=== PATIENT | male | born 1975 | race Caucasian/White ===

== ENCOUNTER 2017-03-30 16:20 | Emergency (ER) | payer MEDICAID ==
[2017-03-30 16:29] VITALS: BP 128/73; PULSE 97; RESP 18; TEMP 97.9; O2SAT 93
[2017-03-30] MEDS ORDERED: HYDROmorphONE/DILAUDID 1 MG/ML INJ IM ONE (17:04)
--- NOTE | 2017-03-30 17:07 | EDPHY ---
H & P Time Seen by Provider: 03/30/17 16:34 HPI/ROS: CHIEF COMPLAINT: Low back pain HISTORY OF PRESENT ILLNESS: 41-year-old male presents with low back pain. He has a history of chronic low back pain and is under the care of a pain medicine specialist. He takes oxycodone and MS Contin daily. He received a steroid lumbar injection 1 month ago. Since then, the pain has gradually worsened. The pain is now unrelieved with his usual pain medications. In addition, his pain medicine doctor has been lowering his narcotic dosing gradually. No new numbness, weakness or radiation of pain. REVIEW OF SYSTEMS: Constitutional: No fever, no chills Eyes: No visual changes ENT: No sore throat Respiratory: No cough, no shortness of breath Cardiac: No chest pain Gastrointestinal: No nausea, no vomiting, no abdominal pain Genitourinary: no dysuria Musculoskeletal: No leg pain or swelling Skin: No rash Neurological: No headache, no numbness, no weakness Psychiatric: No depression Past Medical/Surgical History: Chronic low back pain Smoking Status: Never smoked Physical Exam: General Appearance: Alert, pleasant, does not appear in pain Eyes: Pupils equal and round, no conjunctival pallor ENT, Mouth: Mucous membranes moist Neck: Normal inspection Respiratory: normal respiratory rate Cardiovascular: Regular rate and rhythm Gastrointestinal: Abdomen is soft and nontender Back: Tenderness over the right lower lumbar area, no midline tenderness Neurological: A&O, motor 5/5, sensory intact to light touch, normal gait Skin: Warm and dry Extremities: normal inspection Psychiatric: Mood and affect normal Constitutional: Initial Vital Signs Temperature (C) 36.6 C 03/30/17 16:26 Heart Rate 97 03/30/17 16:26 Respiratory Rate 18 03/30/17 16:26 Blood Pressure 128/73 H 03/30/17 16:26 O2 Sat (%) 93 03/30/17 16:26 O2 Delivery Mode Room Air Allergies/Adverse Reactions: morphine Allergy (Verified 03/30/17 16:24) Home Medications: Medication Instructions Recorded GABAPENTIN 10/30/13 Flexeril 03/30/17 Ms Contin 03/30/17 Oxycontin 03/30/17 methylPREDNISolone [Medrol Dose 1 each PO AD #1 ea 03/30/17 Mj] traMADol 03/30/17 Medical Decision Making ED Course/Re-evaluation: I reviewed CORHIO: last ED visit on 12/2015 at [facility] for LBP. [place] prescriptive hx website: one provider and one pharmacy, last rx 03/11/17. Dilaudid 1 mg IM given. A Medrol Dosepak prescribed. Differential Diagnosis: includes though not limited to epidural abscess, sciatica, cauda equina syndrome , muscular strain, compression fx - Data Points Medications Given: Discontinued Medications Hydromorphone HCl (Dilaudid) 1 mg IM EDNOW ONE Stop: 03/30/17 17:05 Last Admin: 03/30/17 17:18 Dose: 1 mg Departure - Departure Disposition: Home, Routine, Self-Care Clinical Impression: Chronic lower back pain Qualifiers: Back pain laterality: bilateral Sciatica presence: without sciatica Qualified Code(s): M54.5 - Low back pain; G89.29 - Other chronic pain Condition: Good Instructions: Chronic Back Pain (ED) Referrals: KING FLORES [Primary Care Provider] - 3-4 days, if not improved Prescriptions: methylPREDNISolone [Medrol Dose Mj] 1 each PO AD #1 ea
--- NOTE | 2017-03-31 16:31 | ASDISCHSUM ---
Discharge Information Plan Status:Home with No Needs Medically Cleared to Leave: Discharge Date:03/30/2017 05:31 PM CM D/C Disposition:Home, Routine, Self-Care ADT D/C Disposition:Home, Routine, Self-Care Projected Discharge Date:03/30/2017 05:31 PM Transportation at D/C:None or Unknown Discharge Delay Reason: Follow-Up Date:03/30/2017 05:31 PM Discharge Slot: Final Diagnosis: Placement Information Patient Contact Information Contact Name:JASONREGINAARIS Relationship:Mother Address:[address] Work Phone: City:[place] [facility] Phone: [facility]/Zip Code:[place] [address] Email: Financial Information Financial Class:MD Primary Plan Desc:[employer]ICA[employer] Primary Plan Number:[id number] Secondary Plan Desc: Secondary Plan Number: Assessment Information Intervention Information
== END 2017-03-30 17:31 | disposition home or self-care (01) ==
DX: M54.5 Low back pain (principal); G89.29 Other chronic pain
CPT/HCPCS: J1170

== ENCOUNTER 2017-05-13 12:53 | Emergency (ER) | payer MEDICAID ==
[2017-05-13 13:00] VITALS: RESP 16
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
[2017-05-13] MEDS ORDERED: DEXAMETHASONE 10 MG/ML VIAL IVP ONE (14:53)
[2017-05-13] MEDS ORDERED: NS 1,000 ML IV ONE (14:53)
[2017-05-13] MEDS ORDERED: METOCLOPRAMIDE 10 MG/2 ML VIAL IVP ONE (14:53)
[2017-05-13] MEDS ORDERED: HALOPERIDOL LACT 5 MG/ML INJ IVP ONE (15:38)
[2017-05-13 16:16] VITALS: BP 130/74; PULSE 88; TEMP 97.7; O2SAT 98
== END 2017-05-13 16:14 | disposition home or self-care (01) ==
DX: G43.009 Migraine without aura, not intractable, without status migrainosus (principal); M54.5 Low back pain; G89.29 Other chronic pain; F11.90 Opioid use, unspecified, uncomplicated; E86.9 Volume depletion, unspecified
CPT/HCPCS: 96374; J1200; J2765

== ENCOUNTER 2017-08-25 07:59 | Emergency (ER) | payer MEDICAID ==
[2017-08-25 08:14] VITALS: BP 130/88; PULSE 82; RESP 16; TEMP 96.8; O2SAT 98
[2017-08-25] MEDS ORDERED: KETAMINE 500 MG/10 ML VIAL NASAL ONE (08:20)
[2017-08-25] MEDS ORDERED: LIDOCAINE 4%/MENTHOL 1% PATCH TD ONE (08:20)
[2017-08-25] MEDS ORDERED: CYCLOBENZAPRINE 10 MG TAB PO ONE (08:20)
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
[2017-08-25] MEDS ORDERED: KETOROLAC 30 MG/1 ML SDV IM ONE (08:26)
[2017-08-25] MEDS ORDERED: PATCH REMOVAL 1 EA PATCH TD SCH (21:00)
== END 2017-08-25 09:18 | disposition home or self-care (01) ==
DX: M54.5 Low back pain (principal); G89.29 Other chronic pain
CPT/HCPCS: J1885

== ENCOUNTER 2017-08-25 22:36 | Emergency (ER) | payer MEDICAID ==
[2017-08-25 22:40] VITALS: BP 131/84; PULSE 95; RESP 20; TEMP 97.9; O2SAT 96
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
== END 2017-08-25 23:33 | disposition home or self-care (01) ==
DX: M54.41 Lumbago with sciatica, right side (principal); M54.42 Lumbago with sciatica, left side; G89.29 Other chronic pain; Z76.5 Malingerer [conscious simulation]